=== PATIENT | male | born 1960 | race African-American/Black ===

== ENCOUNTER 2017-05-10 13:58 | Outpatient (CLI) | payer BC ==
[2017-05-10 15:09] LABS: Hemoglobin 14.1 g/dL (14.0-18.0); Mean Corpuscular HGB CONC 31.7 g/dL (32.0-36.0); Mean Corpuscular Volume 88.3 fl (80.0-94.0); Mean Platelet Volume 8.1 fL (7.4-10.4); Platelet Count 239 thou/uL (130-400); RBC Distribution Width 12.4 % (11.5-14.5); Red Blood Cell (RBC) Count 5.03 mill/uL (4.70-6.10); White Blood Cell (WBC) Count 3.6 thou/uL (4.8-10.8)
[2017-05-10 15:29] LABS: Anion Gap 12 mmol/L (10-20); BUN (Urea Nitrogen) 14 mg/dL (8.4-25.7); Calc. Creatinine Clearance 0 mL/min (70-130); Calcium 9.5 mg/dL (7.8-10.44); Carbon Dioxide 29 mmol/L (22-29); Chloride 106 mmol/L (98-107); Estimated GFR-MDRD 82; Glucose 116 mg/dL (70-105); Potassium 4.5 mmol/L (3.5-5.1); Sodium 142 mmol/L (136-145)
== END 2017-05-10 13:59 | disposition home or self-care (01) ==
LOC: LABBT 13:58
PROVIDERS: ATTEND Internal Medicine Cardiovascular Disease
DX: Z01.812 Encounter for preprocedural laboratory examination (principal); F43.9 Reaction to severe stress, unspecified
CPT/HCPCS: 80048; 85027

== ENCOUNTER → 2017-05-14 | Day surgery (SDC) | payer BC ==
[2017-05-10 14:20] VITALS: BMI 28.8
[~2017-05-14] MED LIST: Diazepam 5 MG TAB ONE; Fentanyl 100 MCG/2 ML VIAL ONE; Iopamidol 370 76% 100 ML VIAL ONE; Metoprolol Tartrate 5 MG/5 ML VIAL ONE; Midazolam HCl 2 mg/2 ml Vial ONE; Nitroglycerin 100MG/250ML BOT 250 ML ONE; traMADol HCl 50 MG TAB ONE
--- NOTE | 2017-05-14 13:11 | DIS ---
Mr. Cifuentes underwent cardiac catheterization today. There was no obstructive stenosis. He had approx imately 10% tapering of the mid LAD. The patient's chest discomfort is probably esophageal reflux, i t is nocturnal. He does have a very high cholesterol. The most recent LDL was 199 on 04/29/2015, tr iglyceride 84, HDL 43. He also has occasional palpitations, but are infrequent, sounds like some typ e of atrial arrhythmia most likely last a few seconds at a time. ASSESSMENT: 1. No significant flow-limiting coronary disease. 2. Hypercholesterolemia. 3. Continue chewing tobacco. PLAN: 1. Crestor 20 mg a day. 2. Protonix 40 mg a day for a month, then Pepcid-AC 20 mg a day. 3. If needed add low dose beta blockers. 4. He had a false positive stress test.
== END ==
LOC: CCL 06:12
PROVIDERS: ATTEND Internal Medicine Cardiovascular Disease
DX: R07.89 Other chest pain (principal); E78.00 Pure hypercholesterolemia, unspecified; F17.220 Nicotine dependence, chewing tobacco, uncomplicated; I48.91 Unspecified atrial fibrillation; E07.9 Disorder of thyroid, unspecified
CPT/HCPCS: 76942; 93458; 99152; 99153; C1769; J1644; J2250; J3010